=== PATIENT | male | born 1995 ===

== ENCOUNTER 2020-06-01 15:03 | Outpatient (REF) | payer MEDICAID, SELFPAY | END 2020-06-01 15:23 | LOC: NCHCN 15:03 | PROVIDERS: Visit Provider Nurse Practitioner Community Health | DX: R19.7 Diarrhea, unspecified (principal) | CPT/HCPCS: 87177 ==

== ENCOUNTER 2020-08-25 21:03 | Outpatient (REF) | payer MEDICAID, SELFPAY ==
[2020-08-25 22:59] LABS: ALT 43 U/L (16-63); AST 25 U/L (15-37); Albumin 4.2 g/dL (3.4-5.0); Alkaline Phosphatase 85 U/L (46-116); BUN 8 mg/dL (7-18); Bilirubin, Total 0.3 mg/dL (0.2-1.0); CREATININE 0.91 mg/dL (0.70-1.30); Calcium 8.9 mg/dL (8.5-10.1); Chloride 105 mmol/L (98-107); Glucose 80 mg/dL (74-106); Sodium 143 mmol/L (136-145); Total Protein 7.3 g/dL (6.4-8.2)
== END 2020-08-25 21:23 ==
LOC: NCHCN 21:03
PROVIDERS: Visit Provider Nurse Practitioner Community Health
DX: E87.6 Hypokalemia (principal)
CPT/HCPCS: 80053

== ENCOUNTER 2020-09-08 17:31 | Outpatient (REF) | payer MEDICAID, SELFPAY ==
[2020-09-21 14:38] LABS: Parasite Growth See Comments
== END 2020-09-08 17:51 ==
LOC: NCHCN 17:31
PROVIDERS: Visit Provider Nurse Practitioner Community Health
DX: R19.7 Diarrhea, unspecified (principal)
CPT/HCPCS: 87177